=== PATIENT | male | born 1945 | race Two or more races ===

== ENCOUNTER 2017-03-25 09:22 | Day surgery (SDC) | payer OTHER ==
--- NOTE | 2017-03-24 12:30 | Pre-Procedure Note/Attestation ---
Pre-Procedure Note/Attestation Complete Prior to Procedure Planned Procedure: right Procedure Narrative: rt knee scope, medial and lateral meniscectomy and chondroplasty Indications for Procedure Pre-Operative Diagnosis: rt knee medial and lateral meniscus tear Attestation I attest that I discussed the nature of the procedure; its benefits; risks and complications; and alternatives (and the risks and benefits of such alternatives ), prior to the procedure, with the patient (or the patient's legal key account representative). I attest that, if there was a reasonable possibility of needing a blood transfusion, the patient (or the patient's legal key account representative) was given the [facility] standardized written summary, pursuant to the Mario Álvaro Blood Safety Act ([place] Health and Safety Code # 1645, as amended). I attest that I re-evaluated the patient just prior to the surgery and that there has been no change in the patient's H&P, except as documented below: BRANDON ARNOLD Mar 24, 2017 12:30
[2017-03-25] VITALS (9 sets, daily range): BP systolic 118–133; BP diastolic 66–74
[~2017-03-25] VITALS: Ht 172.7 cm; Wt 70.3 kg
[~2017-03-25 09:22] MED LIST: ceFAZolin 1gm in D5W 55ml IVP ONE
[2017-03-25] MEDS ORDERED: Ropivacaine 5mg/ml Vial 20ml INJ ONE (10:12)
[2017-03-25] MEDS ORDERED: Bupivacaine w/Epi 0.5% 30ml Vial INJ ONE (10:12)
[2017-03-25] MEDS ORDERED: METFORMIN HCL1000 M1 ORAL (10:28)
[2017-03-25] MEDS ORDERED: GLIPIZIDE5 MG ORAL (10:28)
[2017-03-25] MEDS ORDERED: LOSARTAN POTASS25 MG ORAL (10:29)
[2017-03-25] MEDS ORDERED: TAMSULOSIN HCL0.4 MG ORAL (10:29)
[2017-03-25] MEDS ORDERED: Dexamethasone 4mg/ml vial ONE (10:30)
[2017-03-25] MEDS ORDERED: Metoclopramide 10mg/2ml Inj ONE (10:30)
[2017-03-25] MEDS ORDERED: Midazolam 2mg/2ml Inj ONE (10:30)
[2017-03-25] MEDS ORDERED: fentaNYL 100 mcg/2 mL IV ONE (10:30)
[2017-03-25] MEDS ORDERED: Ketorolac 30mg Inj ONE (10:30)
[2017-03-25] MEDS ORDERED: LR 1000ml ONE (10:30)
[2017-03-25] MEDS ORDERED: PRAVASTATIN SOD20 M1 ORAL (10:30)
[2017-03-25] MEDS ORDERED: Lidocaine 1% MPF 10mg/ml 5ml ONE (10:30)
[2017-03-25] MEDS ORDERED: Propofol 200mg/20ml IV ONE (10:30)
[2017-03-25] MEDS ORDERED: NS Irrig 4000ml IRRIG ONE ×2 (10:30→10:57)
[2017-03-25] MEDS ORDERED: OMEPRAZOLE40 M1 ORAL (10:32)
--- NOTE | 2017-03-25 11:10 | Brief Operative Note ---
Immediate Post Operative Note Operative Note Chief Complaint: rt knee pain Pre-op Diagnosis: rt knee lateral meniscus tear Procedure: rt knee scope, lateral meniscectomy and resection of loose fragment Post-op Diagnosis: same as pre-op Findings: consistent w/pre-op dx studies Surgeon: md anders Anesthesiologist: md adam Anesthesia: general Specimen: none Complications: none Condition: stable Fluids: NS Estimated Blood Loss: minimal Drains: none Implant(s) used?: LORI Flores Mar 25, 2017 11:09
--- NOTE | 2017-03-25 11:36 | Anethesia Preoperative Eval ---
Anesthesia Pre-op PMH/ROS General Date of Evaluation: Mar 25, 2017 Anesthesiologist: Forest ASA Score: ASA 2 Mallampati Score Class I : Soft palate, uvula, fauces, pillars visible Class II: Soft palate, uvula, fauces visible Class III: Soft palate, base of uvula visible Class IV: Only hard plate visible Mallampati Classification: Class II Surgeon: Tamiko Diagnosis: Right knee pain Surgical Procedure: Right knee arthroscopy Anesthesia History: none Family History: no anesthesia problems Allergies: Coded Allergies: CODEINE (Verified Allergy, Intermediate, vomiting; itch, 03/25/17) TRAMADOL (Verified Allergy, Intermediate, itch; vomiting, 03/25/17) CELECOXIB (Verified Allergy, Unknown, vomiting ;itch, 03/25/17) HYDROCODONE (Verified Allergy, Unknown, vomiting; itch, 03/25/17) Medications: see eMAR Past Medical History Cardiovascular: Denies: HTN, CAD, NV, valve dz, arrhythmia, other Pulmonary: Denies: asthma, COPD, KWESI, other Gastrointestinal/Genitourinary: Denies: GERD, CRI, ESRD, other Neurologic/Psychiatric: Denies: dementia, CVA, depression/anxiety, TIA, other Endocrine: Reports: DM, Denies: hypothyroidism, steroids, other HEENT: Denies: cataract (L), cataract (R), glaucoma, [place] (L), [place] (R), other Hematology/Immune: Denies: anemia, DVT, bleeding disorder, other Musculoskeletal/Integumentary: Denies: OA, RA, DJD, DDD, edema, other PSxH Narrative: inguinal hernia, left knee arthroscopy Anesthesia Pre-op Phys. Exam Physician Exam Last Vital Signs Date Time Temp Pulse Resp B/P (MAP) Pulse Ox O2 Delivery O2 Flow Rate FiO2 03/25/17 10:12 98.6 57 18 133/67 96 Room Air Constitutional: NAD Cardiovascular: RRR Respiratory: CTA Airway Exam Mallampati Score: Class II MO: full ROM: full Teeth: intact Dentures: upper, lower Anesthesia Pre-op A/P Labs see chart Studies Pre-op Studies: EKG - incomplete rbbb=baseline Risk Assessment & Plan Assessment: ASA II Plan: GA Status Change Before Surgery: No Pre-Antibiotics Drug: Ancef 1g Given Within 1 Hr of Incision: Yes Time Given: 10:40 FONG,DAVID M.D. Mar 25, 2017 11:36
--- NOTE | 2017-03-25 11:37 | Immediate Post-Op Evaluation ---
Immediate Post-Op Evalulation Immediate Post-Op Evalulation Procedure: Right knee arthroscopy, lateral meniscectomy, and chondroplasty Date of Evaluation: Mar 25, 2017 Time of Evaluation: 11:33 IV Fluids: 500 Blood Products: 0 Estimated Blood Loss: 2 Urinary Output: 0 Blood Pressure Systolic: 126 Blood Pressure Diastolic: 66 Pulse Rate: 63 Respiratory Rate: 16 O2 Sat by Pulse Oximetry: 100 Temperature (Fahrenheit): 97.1 Pain Score (1-10): 0 Nausea: No Vomiting: No Complications 0 Patient Status: awake, reacts, patent, none Hydration Status: adequate Drug: Ancef 1g Given Within 1 Hr of Incision: Yes Time Given: 10:40 DAVID FONG M.D. Mar 25, 2017 11:37
[2017-03-25] MEDS ORDERED: LR 1000ml 1,000 ML IVLG SCH (11:38)
--- NOTE | 2017-03-25 11:38 | 48 Hour Post Anesthesia Eval ---
Post Anesthesia Evaluation Procedure: Right knee arthroscopy, lateral meniscectomy, and chondroplasty Date of Evaluation: Mar 25, 2017 Airway: patent Nausea: No Vomiting: No Pain Intensity: 0 Hydration Status: adequate Cardiopulmonary Status: at baseline Mental Status/LOC: patient returned to baseline Post-Anesthesia Complications: 0 Follow-up care needed: ready to discharge DAVID FONG M.D. Mar 25, 2017 11:38
[2017-03-25] MEDS ORDERED: Metoclopramide 10mg/2ml Inj IVP PRN (11:45)
[2017-03-25] MEDS ORDERED: LORazepam Inj 2mg/ml 1ml IV PRN (11:45)
[2017-03-25] MEDS ORDERED: DiphenhydrAMINE 50mg/ml Inj IVP PRN ×2 (11:45→19:00)
[2017-03-25] MEDS ORDERED: fentaNYL 100 mcg/2 mL IV PRN (11:45)
[2017-03-25] MEDS ORDERED: HYDROmorphone 1mg/ml Carpuject SUBQ PRN (19:00)
[2017-03-25] MEDS ORDERED: D5 1/2NS 1,000 ML IV SCH (19:00)
[2017-03-25] MEDS ORDERED: Norco 5mg/325mg tab ORAL PRN (19:00)
--- NOTE | 2017-03-25 20:45 | Operative Note - Dictated ---
DATE OF OPERATION: 03/25/2017 PREOPERATIVE DIAGNOSIS: Right knee lateral as well as medial meniscus tearing. POSTOPERATIVE DIAGNOSES: 1. Right knee horizontal cleavage tear of body and anterior horn lateral meniscus involving 30% lateral meniscus. 2. Right knee patellofemoral arthritis. 3. Loose fragment in the suprapatellar pouch. PROCEDURES: 1. Right knee arthroscopy and extensive intra-articular shaving. 2. Right knee partial lateral meniscectomy involving 30% of the body and anterior horn lateral meniscus. 3. Right knee resection of loose fragment. SURGEON: Mario Morrison M.D. SEPTIC CLEANER: Karrie Perla PA-C. ANESTHESIOLOGIST: Dr. Garg. ANESTHESIA: LMA anesthesia. Dredge Mechanic was present during the actual operative portion of the case and was important and essential part of the operation. During the operation, the assistant designer held and operated the arthroscopic camera for visualization, assisted by manipulating the leg to help with visualization, and helped with essential parts of the repair process as necessary such as operating surgical instruments under surgeon supervision, suture management, and wound closures. TOURNIQUET TIME: 25 minutes. EBL: Minimal. COMPLICATIONS: None. SURGICAL INDICATION: The patient is a 72-year-old male who sustained the above injury to his Knee. The patient was treated non-operative initially, but this did not alleviate the patients symptoms. Therefore, after discussing all non-surgical and surgical options, and discussing all foreseeable risk and benefits of surgery, the patient opted for surgical treatment as described above. PATIENT POSITIONING: Patient was brought to the operating room table and placed supine. All pressure points were well padded. General Anesthesia was induced and a well padded tourniquet was placed on the thigh. The lateral post was placed and positioned to allow for opening of the medial compartment of the knee without placing pressure over the fibular head. Patients entire leg was prepped and draped in the usual sterile fashion. Time out was performed and preop abx was given and after exsanguinating the lower extremity, the tourniquet was inflated to 275mm of mercury. EXAMINATION OF THE KNEE UNDER ANESTHESIA: Before prepping and draping the knee and while the patient was relaxed under general anesthesia, the knee was examined for ROM, and anterior and posterior, medial and lateral, posterolateral, and posteromedial instability. Pivot shift testing was performed. There was no evidence of loss of motion or instability and the pivot shift testing was negative. PORTAL PLACEMENT: The lateral portal was placed with the knee flexed to 90 degrees at the level of inferior border of the patella in line with the lateral border of the patella. A cm skin incision was made with an eleven blade, and using a blunt obturator, the capsule was gently penetrated. Sterile saline solution was then infused inside the knee with the aid of a pump set at 35 mm mercury pressure. Under direct visualization, placement of the medial portal was preliminary judged using a spinal needle, and it was subsequently established using the same technique as the lateral portal. Care was given not to injure the cutaneous branches of the medial Saphenous nerve or the subcutaneous veins. DIAGNOSTIC ARTHROSCOPY: The suprapatellar patellar pouch was visualized. There was some loose fragments floating around the suprapatellar pouch measuring 5 to 7 mm. The medial and lateral patellar facets and trochlear groove articular cartilage was visualized. There was trochlear damage centrally measuring 8 millimeters x 12 millimeters. This was consistent with grade 4 chondromalacia. The medial plica shelf and the corresponding medial femoral condyle articular cartilage were visualized. There was no significantly thickening of the medial plica shelf and there were no kissing? lesion over the medial femoral condyle. The lateral gutter and the posterolateral corner of the knee were visualized. There were no loose bodies, and the popliteus tendon and other structures of the posterolateral corner of the knee were intact intra-articularly. At this point, the knee was placed in the figure of four position and the lateral compartment was entered. The lateral femoral condyle, lateral tibial plateau, and the anterior, body, and the posterior horn of the lateral meniscus were visualized and probed. The articular surfaces were intact and devoid of articular cartilage damage. There was extensive tear of the body and anterior horn lateral meniscus with horizontal cleavage variety involving 30% lateral meniscus. The knee was then placed at 90 degree and the ACL and PCL were visualized and probed. The ACL was completely intact on visualization and probing, and it had excellent tension. The PCL was completely intact on visualization and probing and it had excellent tension. The medial compartment was then entered and the medial femoral condyle, medial tibial plateau, and the anterior, body, and the posterior horn of the medial meniscus were visualized and probed. The articular surfaces were intact and devoid of articular cartilage damage. The medial meniscus was completely intact both on its undersurface and on the top. The medial gutter was visualized. There was no evidence of defect or loose fragments. The scope was then brought back to the patella femoral compartment. OPERATIVE ARTHROSCOPY: At this point, all loose debris and fragments were removed with the use of suction motorized shaver. Specific attention was given to assure all visible loose fragments were irrigated out of the knee joint with pump inflow and cannula outflow system. The loose fragments were identified and visualized. Using combination of the shaver, suction, and graspers, these loose fragments were removed. These loose fragments measured approximately 7 mm. All debris left behind was removed with combination of jian and graspers. The frayed articular cartilage of the undersurface of the patella and the trochlear groove were debrided using a motorized shaver. Suction was used to pull in the loose fragments and flaps of the cartilage and to minimize damage to the intact and well attached portion of the cartilage. This allowed for a smooth surface for the articular cartilage gliding. At this point, attention was given to the lateral meniscus. Using combination of baskets and jian, the torn portion of the lateral meniscus was removed. Attention was given to remove all displaced and unstable portion of the lateral meniscus while maintaining as much of the functional portion of the meniscus as possible. Approximately, 30% of the body and anterior horn of the meniscus was removed in this fashion. The transition between the meniscectomy portion and intact portion of the meniscus was smoothed out with combination of small baskets and jian. Excellent transition zone was obtained in this fashion. CONDITION AT DISCHARGE FROM OPERATING ROOM: The knee was irrigated with copious amount of normal saline at the end of the procedure. The scope was removed and the water was drained. The skin edges were re-approximated and sterile dressing was applied. All lap count and instrument counts were correct. Patient tolerated the procedure well without complications and was taken to the recovery room in stable condition. Mario Morrison M.D. DR: SHERLEY JOB#: [id number] CC: TIERENY
== END 2017-03-25 13:30 | disposition home or self-care (01) ==
LOC: SUR 09:22
DX: M23.241 Derangement of anterior horn of lateral meniscus due to old tear or injury, right knee (principal); M23.41 Loose body in knee, right knee; M17.11 Unilateral primary osteoarthritis, right knee; E11.9 Type 2 diabetes mellitus without complications; I10 Essential (primary) hypertension; E78.5 Hyperlipidemia, unspecified; Z79.84 Long term (current) use of oral hypoglycemic drugs
CPT/HCPCS: 29881; 82962; J0690; J1100; J1885; J2250; J2405; J2704; J2765; J2795; J3010; J7120; 94003; 94150

== ENCOUNTER → 2018-04-21 | Day surgery (SDC) | payer OTHER ==
[~2018-04-21] VITALS: Ht 172.7 cm; Wt 68.0 kg
[2018-04-21] VITALS (10 sets, daily range): BP systolic 118–142; BP diastolic 68–75
[~2018-04-21] MED LIST changes: +Acetaminophen (Non formulary) 100 ML IV ONE; +Bupivacaine w/Epi 0.5% 30ml Vial INJ ONE; +D5 1/2NS 1,000 ML IV SCH; +GLIPIZIDE5 MG ORAL; +HYDROmorphone 1mg/ml Carpuject SUBQ PRN; +LOSARTAN POTASS25 MG ORAL; +Lidocaine 1% MPF 10mg/ml 5ml ONE; +METFORMIN HCL1000 M1 ORAL; +Metoclopramide 10mg/2ml Inj ONE; +Midazolam 2mg/2ml Inj ONE; +NS Irrig 4000ml IRRIG ONE; +OMEPRAZOLE40 M1 ORAL; +PRAVASTATIN SOD20 M1 ORAL; +Propofol 200mg/20ml IV ONE; +Ropivacaine 5mg/ml Vial 30ml INJ ONE; +Sterile Water Irrig 1000ml IRRIG ONE; +TAMSULOSIN HCL0.4 MG ORAL; +Zemuron 50mg/5ml Inj IV ONE; +ceFAZolin 1gm IVPB IVPB ONE; -ceFAZolin 1gm in D5W 55ml IVP ONE; +fentaNYL 100 mcg/2 mL IV ONE; +fentaNYL 100 mcg/2 mL IV PRN
--- NOTE | 2018-04-21 06:59 | Pre-Procedure Note/Attestation ---
Pre-Procedure Note/Attestation Complete Prior to Procedure Planned Procedure: right Procedure Narrative: rt shoulder scope, sad, FULL italo, possible labral repair, possible biceps tenodesis, possible rtc repair Indications for Procedure Pre-Operative Diagnosis: rt shoulder impingement Attestation I attest that I discussed the nature of the procedure; its benefits; risks and complications; and alternatives (and the risks and benefits of such alternatives ), prior to the procedure, with the patient (or the patient's legal customer retention representative). I attest that, if there was a reasonable possibility of needing a blood transfusion, the patient (or the patient's legal customer retention representative) was given the [place] [facility] standardized written summary, pursuant to the Mario Farnham Blood Safety Act ([place] Health and Safety Code # 1645, as amended). I attest that I re-evaluated the patient just prior to the surgery and that there has been no change in the patient's H&P, except as documented below: none Mario Morrison MD Apr 21, 2018 06:59
[2018-04-21 07:52] LABS: BASOPHILS % (AUTO) 1.5 % (0.0-2.0); EOSINOPHILS % (AUTO) 3.5 % (0.0-3.0); HEMATOCRIT 39.8 % (42.0-52.0); HEMOGLOBIN 12.2 G/DL (14.2-18.0); LYMPHOCYTES % (AUTO) 37.9 % (20.0-45.0); MEAN CORPUSCULAR VOLUME 82 FL (80-99); MONOCYTES % (AUTO) 8.8 % (1.0-10.0); NEUTROPHILS % (AUTO) 48.3 % (45.0-75.0); PLATELET COUNT 233 K/UL (150-450); RED BLOOD COUNT 4.88 M/UL (4.70-6.10); RED CELL DISTRIBUTION WIDTH 14.1 % (11.6-14.8); WHITE BLOOD COUNT 5.3 K/UL (4.8-10.8)
[2018-04-21 07:54] LABS: ANION GAP 8 mmol/L (5-15); BLOOD UREA NITROGEN 17 mg/dL (7-18); CALCIUM 9.1 MG/DL (8.5-10.1); CARBON DIOXIDE 27 MMOL/L (21-32); CHLORIDE 107 MMOL/L (98-107); POTASSIUM 4.1 MMOL/L (3.5-5.1); SODIUM 142 MMOL/L (136-145)
[2018-04-21 08:01] LABS: INR 0.9 (0.9-1.1)
--- NOTE | 2018-04-21 09:27 | Brief Operative Note ---
Immediate Post Operative Note Operative Note Chief Complaint: rt shoulder pain Pre-op Diagnosis: rt shoulder impingement Procedure: rt shoulder scope, sad, full italo, rtc debridement Post-op Diagnosis: same as pre-op Findings: consistent w/pre-op dx studies Surgeon: md anders Medical Physiologist: steven frederick Anesthesiologist: md calvin/remington Anesthesia: general Specimen: none Complications: none Condition: stable Fluids: ns Estimated Blood Loss: minimal Drains: none Implant(s) used?: No Karrie Frederick Apr 21, 2018 09:26
--- NOTE | 2018-04-21 09:42 | Immediate Post-Op Evaluation ---
Immediate Post-Op Evalulation Immediate Post-Op Evalulation Procedure: right rotator cuff repair Date of Evaluation: Apr 21, 2018 Time of Evaluation: 09:39 IV Fluids: 600 Blood Pressure Systolic: 128 Blood Pressure Diastolic: 69 Pulse Rate: 63 Respiratory Rate: 14 O2 Sat by Pulse Oximetry: 99 Temperature (Fahrenheit): 97.8 Pain Score (1-10): 0 Nausea: No Vomiting: No Complications none Patient Status: awake, reacts, patent Hydration Status: adequate Drug: ancef Given Within 1 Hr of Incision: Yes Time Given: 08:28 Dasia Vaca CRNA Apr 21, 2018 09:42
--- NOTE | 2018-04-21 11:22 | Immediate Post-Op Evaluation ---
Immediate Post-Op Evalulation Immediate Post-Op Evalulation Procedure: right rotator cuff repair Date of Evaluation: Apr 21, 2018 Time of Evaluation: 09:30 Blood Pressure Systolic: 128 Blood Pressure Diastolic: 72 Pulse Rate: 74 O2 Sat by Pulse Oximetry: 99 Temperature (Fahrenheit): 98.3 Pain Score (1-10): 0 Nausea: No Vomiting: No Complications none Patient Status: awake, reacts, patent Hydration Status: adequate Drug: ancef Given Within 1 Hr of Incision: Yes Time Given: 08:28 Dasia Vaca CRNA Apr 21, 2018 11:22
--- NOTE | 2018-04-21 11:46 | Anethesia Preoperative Eval ---
Anesthesia Pre-op PMH/ROS General Date of Evaluation: Apr 21, 2018 Time of Evaluation: 07:45 Anesthesiologist: kierra ASA Score: ASA 2 Mallampati Score Class I : Soft palate, uvula, fauces, pillars visible Class II: Soft palate, uvula, fauces visible Class III: Soft palate, base of uvula visible Class IV: Only hard plate visible Mallampati Classification: Class II Surgeon: lynn Diagnosis: shoulder pain Surgical Procedure: right rotator cuff repair Anesthesia History: none, PONV Family History: no anesthesia problems Allergies: Coded Allergies: CODEINE (Verified Allergy, Intermediate, vomiting; itch, 03/25/17) TRAMADOL (Verified Allergy, Intermediate, itch; vomiting, 03/25/17) CELECOXIB (Verified Allergy, Unknown, vomiting ;itch, 03/25/17) HYDROCODONE (Verified Allergy, Unknown, vomiting; itch, 03/25/17) Medications: see eMAR Patient NPO?: Yes NPO Date: Apr 20, 2018 NPO Time: 23:59 Past Medical History Cardiovascular: Reports: HTN Pulmonary: Denies: asthma, COPD, KWESI, other Gastrointestinal/Genitourinary: Denies: GERD, CRI, ESRD, other Neurologic/Psychiatric: Denies: dementia, CVA, depression/anxiety, TIA, other Endocrine: Reports: DM; Denies: hypothyroidism, steroids, other HEENT: Denies: cataract (L), cataract (R), glaucoma, [place] (L), [place] (R), other Hematology/Immune: Denies: anemia, DVT, bleeding disorder, other PSxH Narrative: umblical hernia - ponv Anesthesia Pre-op Phys. Exam Physician Exam Last Vital Signs Date Time Temp Pulse Resp B/P (MAP) Pulse Ox O2 Delivery O2 Flow Rate FiO2 04/21/18 11:22 208.9 74 99 04/21/18 10:20 20 128/72 Room Air 04/21/18 09:45 6 Constitutional: NAD Neurologic: CN 2-12 intact Cardiovascular: RRR Respiratory: CTA Gastrointestinal: S/NT/ND Airway Exam Mallampati Classification 2 Mallampati Score: Class II MO: full ROM: full Dentures: no upper, no lower Anesthesia Pre-op A/P Labs Hematology Test 04/21/18 07:28 White Blood Count 5.3 K/UL (4.8-10.8) Red Blood Count 4.88 M/UL (4.70-6.10) Hemoglobin 12.2 G/DL (14.2-18.0) L Hematocrit 39.8 % (42.0-52.0) L Mean Corpuscular Volume 82 FL (80-99) Mean Corpuscular Hemoglobin 25.1 PG (27.0-31.0) L Mean Corpuscular Hemoglobin Concent 30.7 G/DL (32.0-36.0) L Red Cell Distribution Width 14.1 % (11.6-14.8) Platelet Count 233 K/UL (150-450) Mean Platelet Volume 8.3 FL (6.5-10.1) Neutrophils (%) (Auto) 48.3 % (45.0-75.0) Lymphocytes (%) (Auto) 37.9 % (20.0-45.0) Monocytes (%) (Auto) 8.8 % (1.0-10.0) Eosinophils (%) (Auto) 3.5 % (0.0-3.0) H Basophils (%) (Auto) 1.5 % (0.0-2.0) Coagulation Test 04/21/18 07:28 Prothrombin Time 10.0 SEC (9.30-11.50) Prothromb Time International Ratio 0.9 (0.9-1.1) Activated Partial Thromboplast Time 25 SEC (23-33) Chemistry Test 04/21/18 07:28 Sodium Level 142 MMOL/L (136-145) Potassium Level 4.1 MMOL/L (3.5-5.1) Chloride Level 107 MMOL/L (98-107) Carbon Dioxide Level 27 MMOL/L (21-32) Anion Gap 8 mmol/L (5-15) Blood Urea Nitrogen 17 mg/dL (7-18) Creatinine 1.0 MG/DL (0.55-1.30) Estimat Glomerular Filtration Rate mL/min (>60) Glucose Level 112 MG/DL (74-106) H Calcium Level 9.1 MG/DL (8.5-10.1) Studies Pre-op Studies: EKG - sr Risk Assessment & Plan Plan: periphernal nerve block + GA Status Change Before Surgery: No Pre-Antibiotics Drug: ancef Given Within 1 Hr of Incision: Yes Time Given: 08:28 Tarrillion,Dasia Saravia FLORAL DESIGNER SALESPERSON Apr 21, 2018 11:46
--- NOTE | 2018-04-21 13:28 | 48 Hour Post Anesthesia Eval ---
Post Anesthesia Evaluation Procedure: right rotator cuff repair Date of Evaluation: Apr 21, 2018 Time of Evaluation: 13:27 Nausea: No Vomiting: No Inocencio Light MD Apr 21, 2018 13:28
--- NOTE | 2018-04-21 17:15 | Operative Note - Dictated ---
DATE OF OPERATION: 04/21/2018 PREOPERATIVE DIAGNOSES: 1. Right shoulder impingement syndrome. 2. Possible right shoulder rotator cuff tear. 3. Right shoulder AC joint arthritis. POSTOPERATIVE DIAGNOSES: 1. Right shoulder impingement syndrome. 2. Right shoulder degenerative labral tearing. 3. Right shoulder AC joint arthritis. 4. A 20% articular-sided rotator cuff tear without full-thickness tear. PROCEDURES: 1. Right shoulder arthroscopy and extensive intra-articular shaving. 2. Right shoulder debridement of the anterior, superior, and then posterior labrum. 3. Right shoulder subacromial bursoscopy, bursectomy, and subacromial decompression. 4. Right shoulder full Kiara procedure (resection of the distal 1 cm of the clavicle). 5. Debridement of the articular-sided rotator cuff tear. SURGEON: Mario Morrison M.D. DESIGN TECH: Karrie Perla PA-C. Eating Disorder Psychologist was present during the actual operative portion of the case and was important and essential part of the operation. During the operation, the assistant production editor held and operated the arthroscopic camera for visualization, assisted by manipulating the arm to help with visualization, and helped with essential parts of the repair process as necessary such as operating surgical instruments under surgeon supervision, suture management, and wound closures. ANESTHESIOLOGIST: Ximena Barfield MD ANESTHESIA: LMA anesthesia. ESTIMATED BLOOD LOSS: Minimal. COMPLICATIONS: None. SURGICAL INDICATION: The patient is a 73-year-old male, who sustained the above injury to his shoulder. The patient was treated non-operative initially, but this did not alleviate the patients symptoms. Therefore, after discussing all non-surgical and surgical options, and discussing all foreseeable risk and benefits of surgery, the patient opted for surgical treatment as described above. PATIENT POSITIONING: The patient was brought to the operating room table and was placed on the operating room table. All pressure points were well padded. General anesthesia was induced and the patient was then placed in the lateral decubitus position. All pressure points were well padded again and an axillary roll was placed. The patient shoulder was then prepped and draped in the usual sterile fashion. Time out was performed and the appropriate preoperative antibiotic was given by the anesthesiologist. EXAMINATION OF SHOULDER UNDER ANESTHESIA: The shoulder was examined under anesthesia with all muscles well relaxed. The shoulder was forward flexed, abducted and was placed through full range of external and internal rotation. The anterior, posterior, and inferior stability of the shoulder was checked. The exam revealed no evidence of adhesive capsulitis and no evidence of instability. PORTAL PLACEMENT: The posterior portal was established 2 cm inferior and 1 cm medial to the edge of the posterior acromion. A 1 cm skin incision was made using an #11 blade and using the blunt obturator, the cannula was gently placed through the capsule. The mid-glenoid portal was established just lateral to the coracoid process under direct visualization. Direction of the cannula was first established using a spinal needle, and subsequently, the cannula was placed through the capsule with a blunt obturator. DIAGNOSTIC ARTHROSCOPY: The biceps tendon was probed and pulled through the joint for visualization. It appeared normal. The biceps anchor was palpated with a probe and was visualized. There was degenerative labral tearing anteriorly, superiorly, and posteriorly. The posterior labrum and axillary recess was visualized. There was some posterior labral tearing, but axillary recess was intact. The glenoid articular surface was visualized and it appeared normal. The articular surface of the rotator cuff was visualized and probed next. There was some 20% articular-sided rotator cuff tear, however, there was no fullness tear. The Humeral head articular surface was then visualized. There was no evidence of articular cartilage damage. Next the anterior labrum, middle glenohumeral ligament, subscapularis tendon, and the anterior inferior glenohumeral ligament were evaluated. There was anterior labral tearing, but glenohumeral ligament and subscapularis was intact. At this point, the scope was moved to the mid-glenoid portal and the posterior structures including the posterior labrum, posterior capsule and posterior cuff were visualized. There was some posterior labral tearing, but the rest of the posterior structures remained intact. The subscapularis recess was devoid of any loose bodies and the anterior capsule was well attached to the humeral neck. The middle and anterior inferior glenohumeral ligament was visualized. These structures were completely normal. OPERATIVE DEBRIDEMENTS AND REPAIR: Care was given to all partial thickness tears and frayed structures in the shoulder joint. The frayed rotator cuff and labrum was debrided using a shaver initially through the anterior portal and subsequently through the posterior portal to complete the debridement. This allowed for smooth debridement of all affected structures and all loose fragments were removed. DIAGNOSTIC BURSOSCOPY AND SUBACROMIAL DECOMPRESSION: The subacromial bursa was entered from the posterior portal. The anterior portal was established under the CA ligament using a switching stick. Subacromial arthroscopy was initiated. There was extensive bursitis and thickened and inflamed bursa tissue present. The CA ligament appeared to be scuffed and frayed. The shaver was placed through the anterior cannula and debridement of the hypertrophic bursa tissue was accomplished. Once visualization was adequate, a lateral portal was established using a blunt trochar in the mid portion of the acromion bone in the anterior-posterior direction and approximately 2 cm lateral to the lateral edge of the acromion. Using combination of shaver and electrocautery the CA ligament was released from the undersurface of the acromion and a complete bursectomy was accomplished. At this point, a subacromial decompression was performed using a allyson initially taking off 5-8 mm of the anterolateral edge of the acromion from the lateral portal and viewing from the posterior portal. Then the lateral border of the undersurface of the acromion was decompressed to the same dept as the anterolateral edge. A posterior trough was then created in the acromion in line with the posterior edge of the clavicle. At this point, the scope was placed in the lateral portal and the subacromial decompression was performed from the posterior portal decompressing the undersurface of the acromion to dept of 5-8 mm. The decompression was performed anterior to the previously marked trough all the way medially to the level of the AC joint. At all times, care was given not to take off too much bone in order to avoid risk of fracture of the acromion. An excellent subacromial decompression was performed in this fashion. At this point, the bursal side of the rotator cuff was examined. All the bursa over the rotator cuff was removed and the rotator cuff was examined with a probe. The arm was placed into external rotation, neutral, and then internal rotation and there was no evidence of tear of the rotator cuff. The scope was then placed in the posterior portal and the subacromial decompression was rechecked to assure there is no area of bone spur that would be still impinging onto the rotator cuff. EVALUATION OF DISTAL CLAVICLE AND DISTAL CLAVICLE RESECTION: Care was given to the distal end of the clavicle. Using electrocautery and jian, the distal end of the bursa and soft tissue around the distal end of the clavicle was debrided and cleaned. Care was given not to inflict excessive trauma to the ligaments of the AC joint. The distal end of the clavicle appeared to have an inferior osteophyte extending down well bellow the level of the acromion at the level of the AC joint. This appeared to be impinging onto the supraspinatus muscle belly and the musculotendinous junction of the rotator cuff. The entire AC joint appeared to be arthritic as well. A full Kiara procedure was then performed resecting the distal 1 cm of the clavicle using a allyson. The resection was initially performed from the posterior portal and view from the lateral portal, and it subsequently completed viewing from the posterior portal and resecting through the anterior portal with a allyson to assure adequate and even resection. Care was given not to damage the superior acromioclavicular ligaments or the coracoacromial ligaments. The extend of the resection was measured by measuring the distance between two spinal needles that were placed perpendicularly through the skin at the edge of the acromion and distal clavicle. CONDITION AT DISCHARGE FROM OPERATING ROOM: The skin was re-approximated and sterile dressing and sling were applied. All lap counts and instrument counts were correct. The patient tolerated the procedure well without complications and was taken to the recovery room in stable conditions. Mario Morrison M.D. DR: ELIU JOB#: [id number] CC: TIERNEY
== END | disposition home or self-care (01) ==
LOC: SUR 05:47
DX: M75.41 Impingement syndrome of right shoulder (principal); S43.491A Other sprain of right shoulder joint, initial encounter; M19.011 Primary osteoarthritis, right shoulder; M75.101 Unspecified rotator cuff tear or rupture of right shoulder, not specified as traumatic; E11.9 Type 2 diabetes mellitus without complications; I10 Essential (primary) hypertension; Z88.5 Allergy status to narcotic agent; Z88.8 Allergy status to other drugs, medicaments and biological substances
CPT/HCPCS: 29823; 29824; 29826; 36415; 80048; 82962; 85025; 85610; 85730; J0690; J2250; J2405; J2704; J2765; J2795; J3010; 94003; 94150